=== PATIENT | male | born 1960 | race Caucasian/White ===

== ENCOUNTER 2020-04-28 15:12 | Observation (INO) | payer OTHER, MEDICAID ==
[~2020-04-28] VITALS: Ht 170.2 cm; Wt 76.2 kg
[2020-04-28 15:17] VITALS: Ht 170.2 cm; Wt 76.2 kg
[2020-04-28 15:38] LABS: BASOPHIL % 0.3 % (0-2); PLATELET COUNT 321 x10^3mcL (130-400)
[2020-04-28 15:47] LABS: CALCIUM 8.3 mg/dL (8.5-10.1); CARBON DIOXIDE 29.4 mmol/L (21-32); CHLORIDE SERUM 100 mmol/L (98-107); GFR1 > 60 mL/min; GLUCOSE SERUM 250 mg/dL (74-106); POTASSIUM SERUM 4.4 mmol/L (3.5-5.1); SODIUM SERUM 135 mmol/L (136-145)
--- NOTE | 2020-04-28 15:49 | NUR ---
PT BIB [facility] C/O SHARP MIDSTERNAL CHEST PAIN X 3 HOURS. MEDIC REPORTS PT HX OF HEART ATTACK X 1 YEAR AGO AND CORONARY ARTERY DISEASE. PT REPORTS CHEST PAIN 9/10 AT THIS TIME, DENIES RADIATION OF PAIN, DENIES ANY ACTIVITY AT ONSET OF PAIN. PER PT "THIS FEELS LIKE THE LAST TIME I HAD A HEART ATTACK". MEDIC REPORTS GIVING 0.4MG NITRO SL THREE TIMES AND 324MG ASPIRIN PO. PER MEDICS PT HX OF BIPOLAR DISORDER, ON 5150 HOLD WRITTEN BY OFFICER DONNELL, ORIGINAL HOLD IN THE CHART. PT APPEARS ANXIOUS AT THIS TIME, SPEAKING QUICKLY AND CONTINUALLY STATING "I JUST NEED SOME ATIVAN". PT COOPERATIVE AT THIS TIME. PT GOWNED AND PLACED ON FULL CM, NSR NOTED. MSE COMPLETED BY DR THOMAS.
[2020-04-28 15:52] LABS: ALBUMIN 3.2 g/dL (3.4-5.0); ALKALINE PHOSPHATASE 103 U/L (46-116); ALT/SGPT 43 U/L (16-63); AST/SGOT 29 U/L (15-37); BILIRUBIN TOTAL 0.5 mg/dL (0.20-1.00)
[2020-04-28] MEDS ORDERED: ZESTRIL20 MG PO (15:55)
[2020-04-28] MEDS ORDERED: ATORVASTATIN CA20 M1 PO (15:55)
[2020-04-28] MEDS ORDERED: FORTAMET500 M1 PO (15:55)
[2020-04-28] MEDS ORDERED: NATURE'S BLEND F1 MG PO (15:56)
[2020-04-28] MEDS ORDERED: PROZAC10 M2 PO (15:56)
[2020-04-28] MEDS ORDERED: THIAMINE HCL100 MG GT (15:56)
[2020-04-28] MEDS ORDERED: SEROQUEL300 MG PO (15:56)
[2020-04-28] MEDS ORDERED: LIB25 PO (15:56)
[2020-04-28] MEDS ORDERED: ELA50 PO (15:57)
--- NOTE | 2020-04-28 16:34 | NUR ---
[place] SITTER AT THE BEDSIDE
--- NOTE | 2020-04-28 16:49 | NUR ---
UPON ENTERING PT ROOM, PT NOTED LAYING IN ER MARCELINO. PT APPEARS AGGITATED AT THIS TIME. PT STATES "CAN I GET SOME MORE ATIVAN OR SOMETHING". PT COOPERATIVE AT THIS TIME. SI/HI PRECAUTIONS IN PLACE. RADHA SCOTT SITTER AT THE BEDSIDE. PT IN FULL VIEW OF NURSES STATION.
--- NOTE | 2020-04-28 17:20 | NUR ---
PT REPORTS "I THINK I HAD A HEAD MARTINEZ IN THE BATHROOM". PT ACCOMPANIED BACK TO [facility]. RADHA SCOTT SITTER AT THE BEDSIDE. WILL CONTINUE TO MONITOR PT AAOX4, RESP E/U, NO DISTRESS NOTED AT THIS TIME
--- NOTE | 2020-04-28 17:50 | NUR ---
PT NOTED GETTING OUT OF BED, INSTRUCTED PT TO SIT BACK IN BED, EDUCATED PT ON FALL SAFETY. PT NOTED AGGITATED AND STATING, "I NEED SOMETHING, YOU GUYS AREN'T DOING ANYTHING. I NEED SOME MEDS. I'VE BEEN HERE FOR 3HRS AND YOU HAVEN'T DONE ANYTHING. I'M IN PAIN. PLEASE. I'M GOING TO LEAVE." INSTRUCTED PT THAT HE CAN NOT LEAVE DUE TO HIS HOLD STATUS. ADVISED PT I HAVE AN ORDER FOR ADIVAN AND CAN GIVE HIM TYLENOL. PT STATED "I'LL TAKE THE ADIVAN. TYLENOL WON'T DO ANYTHING." HELPED PT SIT BACK INTO BED.
--- NOTE | 2020-04-28 18:11 | NUR ---
AT THE BEDSIDE WITH OSWALDO GARCIA AND MYSELF. PT REFUSING ADIVAN 1MG PO. PT AGGITATED AND STATING, "I NEED IT IV. THAT PILL WON'T DO ANYTHING. I NEED 2MG ADIVAN IV OR ELSE IT WONT TOUCH ME. I'VE TAKEN ALL KIND OF OPIODS AND I KNOW WHAT WORKS." INSTRUCTED PT I ONLY HAVE AN ORDER FOR PO ADIVAN. PT REFUSING TO TAKE PO. PT POINTED AT ER MD AND IN A LOUD VOICE STATED, "ASK HIM, I NEED AN IV OF ADIVAN OR ELSE IM LEAVING." PT ATTEMPTING TO GET OUT OF BED. INSTRUCTED PT TO GET BACK IN BED. PT ASSISTED BACK IN BED. SITTER REMAINS AT THE BEDSIDE. INFORMED PT HE IS ADMITTED AND WAITING FOR A BED. I WILL CALL ADMITTING MD.
--- NOTE | 2020-04-28 18:19 | NUR ---
CALLED I.JENNIFER, , CLIFF GONZALEZ NURSING OFFICER AND HAVE HIM CALL ME BACK IN ER REGARDING PT.
--- NOTE | 2020-04-28 18:36 | NUR ---
SPOKE WITH DR SINGH REGARDING PT STATUS. PER VERBAL ORDER FROM DR SINGH, GIVE 1MG IVP ATIVAN Q6H PRN.
--- NOTE | 2020-04-28 18:59 | NUR ---
REPORT GIVEN TO JOSE SMITH. SHE WILL ASSUME FURTHER CARE OF THIS PT
--- NOTE | 2020-04-28 19:02 | NUR ---
RECIEVED REPORT FROM OSWALDO GARCIA TO ASSUME CARE OF PT.
--- NOTE | 2020-04-28 20:13 | NUR ---
PT TRANSFERRED TO TELE BED 241B VIA [place] [employer]CHNOLOGY AUDIT MANAGER AND EMT SOLOMON AND MY SELF, JOSE MARTÍNEZ AT PT BEDSIDE. PT AMBULATED TO TELE BED WITH STEADY GAIT. JOSE BUSCH AT BEDSIDE TO ASSUME CARE.
[2020-04-28 20:21] VITALS: BP 136/86
--- NOTE | 2020-04-28 20:30 | NUR ---
SPOKE TO DR.SANTIAGO WELSHING PT MEDICATION ORDER. EMAR UPDATED PER DRS ORDERS AT THIS TIME.
--- NOTE | 2020-04-28 20:36 | NUR ---
RECIEVED PT FROM ER, PT ADMIT FOR CHEST PAIN. PT IS A/O X4, VERBAL RESPONSIVE. LUNG SOUND CLEAR BILATERAL, NO COUGH, NO SOB. PT IS ON TELE 10, NSR, C/O CHEST PAIN 8/10, BOWEL SOUND PRESENT ALL 4 QUADRANTS, NO DISTENTION. NO TENDER. PEDAL PUSLE PRESENT BOTH FEET, NO EDEMA, IV AT RIGHT AC, NO LEAKING, NO INFILTRATION. PT IS FROM [facility]. ACCORDING TO ER REPORT PT WAS ON 5150. PT STATE HE WAS DRINKING A LOT OF ETOH AND HE DON'T REMEMBER WHAT HAPPEN AFTER. ONCE HE WAS AWAKE HE WAS PLACE ON 5150. HE DENY ANY SUICIDAL THOUGHS OR PLAN. NO HALLUCIATION OR DELUSION. SITTER AT BEDSIDE AT THIS MOMENT. ALL ADLS ASSIST, ALL NEED MET, CALL LIGHT IN REACH, WILL CONTINUE TO MONITOR.
--- NOTE | 2020-04-28 20:37 | NUR ---
PT RECIEVED FROM JO-ANN GARCIA. PT RESTING IN BED AT THIS TIME. STATES INSOMNIA. MEDICATED WITH PRN MED. NO S/S OF ACUTE DISTRESS NOTED. SITTER AT BEDSIDE. WILL CONTINUE TO MONITOR.
--- NOTE | 2020-04-28 22:10 | NUR ---
CALLED DR SINGH AT THIS TIME. PER DR PARSONS TO RESUME HOME METFORMIN, ORDER A1C, AND ADD ACCUCHECKS.
--- NOTE | 2020-04-29 | NUR ---
PT RESTING IN BED AT THIS TIME. DENIES PAIN OR DISCOMFORT AT THIS TIME. BREATHING E/U ON RA. NO S/S OF ACUTE DISTRESS NOTED. SITTER AT BEDSIDE. WILL CONTINUE TO MONITOR.
[2020-04-29 06:04] LABS: BASOPHIL % 0.6 % (0-2); PLATELET COUNT 286 x10^3mcL (130-400); RED CELL DISTRIBUTION WIDTH 14.2 % (11.5-14.5)
[2020-04-29 06:24] VITALS: BP 121/85
--- NOTE | 2020-04-29 06:33 | NUR ---
PT COMPLAINING OF ANXIETY. MEDICATED WITH PRN ATIVAN.
--- NOTE | 2020-04-29 07:19 | NUR ---
REPORT GIVEN TO JARRELL GARCIA. PT RESTING IN BED AT THIS TIME. DENIES PAIN OR DISCOMFORT. PT BREATHING E/U ON RA. NO S/S OF ACUTE DISTRESS AT THIS TIME.
[2020-04-29 07:22] LABS: ALKALINE PHOSPHATASE 99 U/L (46-116); ALT/SGPT 39 U/L (16-63); AST/SGOT 22 U/L (15-37); BILIRUBIN TOTAL 0.3 mg/dL (0.20-1.00); CALCIUM 8.7 mg/dL (8.5-10.1); CARBON DIOXIDE 28.8 mmol/L (21-32); CHLORIDE SERUM 102 mmol/L (98-107); GFR1 > 60 mL/min; GLUCOSE SERUM 229 mg/dL (74-106); MAGNESIUM 1.7 mg/dL (1.8-2.4); POTASSIUM SERUM 4.5 mmol/L (3.5-5.1); SODIUM SERUM 135 mmol/L (136-145)
[2020-04-29 07:23] LABS: ALBUMIN 2.9 g/dL (3.4-5.0); CHOLESTEROL 131 mg/dL (<200); HDL CHOLESTEROL 33 mg/dL (40-60); TOTAL PROTEIN, SERUM 5.7 g/dL (6.4-8.2); TRIGLYCERIDES 253 mg/dL (<150)
--- NOTE | 2020-04-29 08:04 | NUR ---
RECEIVED PATIENT FROM WET PROCESS MILLER HEAD ASSISTANT RN. PATIENT IS SLEEPING, EASILY AROUSABLE. NO C/O PAIN OR SOB NOTED. LUNG SOUNDS ARE CLEAR BILATERALLY, PT ON RA. IV SALINE LOCKED ON RAC, CDI. COMFORT AND SAFETY MEASURES ARE IN PLACE. CALL LIGHT WITHIN REACH. WILL CONTINUE WITH PLAN OF CARE.
[2020-04-29 09:00] VITALS: BP 135/85
[2020-04-29] MEDS ORDERED: METOPROLOL TART25 M1 PO (11:06)
[2020-04-29] MEDS ORDERED: NAP500 PO (11:06)
[2020-04-29] MEDS ORDERED: ACID REDUCER20 MG PO (11:07)
[2020-04-29 13:30] VITALS: BP 121/85
--- NOTE | 2020-04-29 14:36 | NUR ---
PATIENT SEEN AT BEDSIDE, AAOX4. PATIENT IS CALM AND COOPERATIVE. FACE TO FACE EVALUTION DONE. FOR 5150 AT THIS TIME, PATIENT DOES NOT MEET 5150 CRITERIA. PATIENT STATED THAT HE DOES NOT HAVE ANY THOUGHTS OF HURTING HIMSELF OR OTHER PEOPLE AND PATIENT DOES NOT WISH TO . PATIENT IS ABLE TO TAKE CARE OF HIMSELF, NO BIZARRE OR DISORGANIZED BEHAVIOR NOTED AT THIS TIME. PATIENT STATED THAT HE TOOK ALCOHOL PRIOR TO GOING TO [facility] DUE TO HIS PAIN BUT NEVER HAD THOUGHTS OF DYING OR HURTING HIMSELF/OTHER PEOPLE. CHARGE NURSE VALENTINE MADE AWARE OF THE ABOVE.
[2020-04-29 16:22] VITALS: BP 113/75
--- NOTE | 2020-04-29 16:48 | NUR ---
SPOKE WITH DR. JON MADE AWARE PT DENYING SUICIDAL IDEATION AND IS NOT HOLDABLE AT THIS TIME. INQUIRE IF HE WOULD LIKE TO GET PSYCH INVOLVED PER MD NO NEED PT CLEARED TO BE D/C HOME. ATTENDING NURSE MADE AWARE.
--- NOTE | 2020-04-29 19:18 | NUR ---
PATIENT RESTING IN BED COMFORTABLY. ASKING FOR MEDICATION. NO SIGNS OF SOB, CHEST PAIN, OR ACUTE DISTRESS. COMFORT AND SAFETY MEASURES IN PLACE. CALL LIGHT WITHIN REACH. WILL ENDORSE TO MOBILITY SCOOTER REPAIRER RN.
--- NOTE | 2020-04-29 19:30 | NUR ---
PT RECIVED AAO REG RESP NO SOB ABDO IS SOFT WITH ACTIVE BOWEL SOUNDS,PT ANXIOUS AND WANTED HIS NIGHT MEDS,PT ON TELE MONITOR AND IN NSR NO ECTOPY OR CHEST PAIN AT THIS TIME,BED IN THE LOW POSITION AND LOCKED,KEPT CLEAN AND RY TO TOUCH AND WILL CONTINUE TO MONITOR,
[2020-04-29 21:18] VITALS: BP 119/75
--- NOTE | 2020-04-30 00:54 | NUR ---
PT SLEEPING SOUNDLY AND WILL CONTINUE TO MONITOR.
[2020-04-30 05:20] VITALS: BP 101/69
--- NOTE | 2020-04-30 06:15 | NUR ---
PT HAD A RESTING NIGHT NO CHANGE AT THIS TINME AND WILL CONTINUE TO MONIOR.
[2020-04-30 06:41] LABS: ALKALINE PHOSPHATASE 101 U/L (46-116); ALT/SGPT 37 U/L (16-63); AST/SGOT 23 U/L (15-37); BILIRUBIN TOTAL 0.4 mg/dL (0.20-1.00); CALCIUM 8.7 mg/dL (8.5-10.1); CARBON DIOXIDE 26.4 mmol/L (21-32); CHLORIDE SERUM 103 mmol/L (98-107); GFR1 > 60 mL/min; GLUCOSE SERUM 187 mg/dL (74-106); MAGNESIUM 1.8 mg/dL (1.8-2.4); POTASSIUM SERUM 4.1 mmol/L (3.5-5.1); SODIUM SERUM 136 mmol/L (136-145)
[2020-04-30 06:43] LABS: BASOPHIL % 0.7 % (0-2); RED CELL DISTRIBUTION WIDTH 13.8 % (11.5-14.5)
[2020-04-30 06:52] LABS: ALBUMIN 3.1 g/dL (3.4-5.0); TOTAL PROTEIN, SERUM 6.1 g/dL (6.4-8.2)
[2020-04-30 07:21] LABS: PLATELET COUNT 219 x10^3mcL (130-400)
--- NOTE | 2020-04-30 07:33 | NUR ---
RECEIVED PATIENT FROM FIRE FIGHTING EQUIPMENT SPECIALIST RN. PATIENT SLEEPING, EASILY AROUSABLE. NO SIGNS OF ACUTE DISTRESS, SOB OR CHEST PAIN. COMFORT AND SAFETY MEASURES IN PLACE. CALL LIGHT AT BEDSIDE. WILL CONTINUE WITH PLAN OF CARE.
[2020-04-30 07:35] VITALS: BP 105/67
--- NOTE | 2020-04-30 08:46 | NUR ---
PT STATED FEELING ANXIOUS AND REQUESTING ATIVAN
--- NOTE | 2020-04-30 09:47 | NUR ---
PATIENT REFUSED ECHOCARDIOGRAM-STATES HE IS TO BE DISCHARGED AND DOES NOT NEED TEST
--- NOTE | 2020-04-30 10:24 | NUR ---
PT STATED THAT HIS HOLD AT [facility] WAS UP AND HE EXPECTS TO DISCHARGE, PT WAS INFORMED THAT HE NEEDS TO BE CLEARED BY A [facility] DOCTOR BEFORE HE CAN LEAVE, PT IS AWARE HE IS NOT ON A HOLD.
[2020-04-30 11:49] VITALS: BP 122/71
--- NOTE | 2020-04-30 12:32 | NUR ---
PT WALKED TO NURSES STATION, REQUESTING 2MG ATIVAN IV/IM, PT STATES HE FEELS ANXIOUS AND NERVOUS BECAUSE HE WILL MISS HIS MEETINGS AND WAS SUPPOSED TO LEAVE TODAY AT 1000. PT WAS INFORMED THAT WE ARE AWAITING FOR THE PSYCH DOCTOR TO EVALUATE HIM BEFORE HE CAN LEAVE. PT WAS TOLD BY MYSELF AND CHARGE NURSE PIPER OF THIS PLAN X3 TIMES BEFORE RETURNING TO HIS ROOM. DR. RAMIREZ WAS CALLED REGARDING PT'S REQUEST, DR. RAMIREZ STATED HIS PRESCRIPTION IS IN THE PT'S CHART AND WOULD NOT PRESCRIBE ANYTHING ELSE.
--- NOTE | 2020-04-30 15:01 | NUR ---
SPOKE TO DR. RAMIREZ TO MADE AWARE THAT DR. VARELA HAS CLEARED THE PATIENT. PER DR. RAMIREZ, PT CAN BE DISCHARGED HOME TODAY. PRIMARY NURSE JARRELL MADE AWARE
== END 2020-04-30 16:20 | disposition home or self-care (01) ==
LOC: ED 15:12 → DU 16:59
PROVIDERS: Emergency Medicine; ADMIT Hospitalist; ATTEND Hospitalist
DX: R07.89 Other chest pain (principal); I10 Essential (primary) hypertension; E11.9 Type 2 diabetes mellitus without complications; I25.2 Old myocardial infarction
CPT/HCPCS: 82962; 83880; G0378; J1644; J2060; Q0092